=== PATIENT | female | born 1950 | race Caucasian/White ===

== ENCOUNTER → 2016-12-03 | Outpatient (CLI) | payer OTHER | LOC: BRMIMAGING 14:52 | DX: Z12.31 Encounter for screening mammogram for malignant neoplasm of breast (principal) | CPT/HCPCS: 72052-PO; G0202 ==

== ENCOUNTER → 2017-12-15 | Outpatient (CLI) | payer OTHER | LOC: BRMIMAGING 14:51 | PROVIDERS: ATTEND Family Medicine | DX: Z12.31 Encounter for screening mammogram for malignant neoplasm of breast (principal) ==

== ENCOUNTER 2018-09-29 10:02 | Inpatient (IN) | payer OTHER ==
--- NOTE | 2018-09-29 06:23 | PDHPUP ---
History & Physical Update H&P update statement: This history and physical update is based on an assessment of the patient which was completed after admission or registration (within 24 hours), but prior to the surgery/procedure. H&P update: H&P reviewed & patient examined, no change in patient's condition since H&P completed
[~2018-09-29 10:02] MED LIST: ROPIVACAINE 0.2% 80 MG, EPINEPHrine 0.2 MG, KETOROLAC TROMETHAMINE 30 MG in SYRINGE 0 ML IU ONE; TRANEXAMIC ACID 3,000 MG in NS (SYRINGE) 50 ML IRR ONE
[2018-09-29] MEDS ORDERED: TRANEXAMIC ACID 3,000 MG/50 ML BAG IRR ONE (10:05)
[2018-09-29] MEDS ORDERED: DEXAMETHASONE 4 MG/ML VIAL IVP ONE (10:17)
[2018-09-29] MEDS ORDERED: ceFAZolin 2 GM/DEXTROSE 100 ML IV ONE (10:17)
[2018-09-29] MEDS ORDERED: ACETAMINOPHEN 325 MG TAB PO ONE (10:17)
[2018-09-29] MEDS ORDERED: FAMOTIDINE 20 MG TAB PO ONE (10:17)
[2018-09-29] MEDS ORDERED: LR 1,000 ML IV ONE (10:17)
--- NOTE | 2018-09-29 11:50 | PDANEPAE ---
ANE History of Present Illness R total hip arthroplasty. ANE Past Medical History - Cardiovascular History Hx Hypertension: No Hx Arrhythmias: No Hx Chest Pain: No Hx Coronary Artery / Peripheral Vascular Disease: No Hx CHF / Valvular Disease: No Hx Palpitations: No - Pulmonary History Hx COPD: No Hx Asthma/Reactive Airway Disease: No Hx Recent Upper Respiratory Infection: No Hx Oxygen in Use at Home: No Hx Sleep Apnea: No Sleep Apnea Screening Result - Last Documented: Negative - Neurologic History Hx Cerebrovascular Accident: No Hx Seizures: No Hx Dementia: No - Endocrine History Hx Diabetes: No Hypothyroid: No Hyperthyroid: No Obesity: moderate - Renal History Hx Renal Disorders: No - Liver History Hx Hepatic Disorders: No - Neurological & Psychiatric Hx Hx Neurological and Psychiatric Disorders: No - Cancer History Hx Cancer: No - Congenital Disorder History Hx Congenital Disorders: No - GI History GERD: no Hx Gastrointestinal Disorders: No - Other Health History Other Health History: NONE - Chronic Pain History Chronic Pain: Yes (FIBROMYALGIA) - Surgical History Prior Surgeries: NONE IN LAST 5 YRS. Breast reduction, R shoulder arthroscopy, L bunionectomy, C/S under GA ANE Review of Systems Review of Systems: - Exercise capacity METS (RN): 4 METS ANE Patient History - Allergies Allergies/Adverse Reactions: Sulfa (Sulfonamide Antibiotics) Allergy (Verified 09/05/18 11:12) Vomiting/Headache - Home Medications Home Medications: Acetaminophen [Tylenol 325mg (*)] 325 mg PO Q6 PRN 09/05/18 [Last Taken 2 Weeks Ago ~09/15/18] Amitriptyline HCl [Elavil 50 mg (*)] 50 mg PO HS 09/05/18 [Last Taken 09/28/18] Calcium Carbonate [Oyster Shell Calcium 500 mg (*)] 500 mg PO DAILY 09/05/18 [ Last Taken 2 Weeks Ago ~09/15/18] Herbals/Supplements -Info Only 1 ea PO DAILY 09/05/18 [Last Taken 2 Weeks Ago ~ 09/15/18] Melatonin [Melatonin 3 MG (*)] 9 mg PO HS 09/05/18 [Last Taken 09/28/18] Multivitamins [Multivitamin (*)] 1 each PO DAILY 09/05/18 [Last Taken 2 Weeks Ago ~09/15/18] [place]-3 Fatty Acids [Fish Oil 1000 mg (*)] 1,000 mg PO DAILY 09/05/18 [Last Taken 2 Weeks Ago ~09/15/18] Vitamin B Complex [Vitamin B Complex (OTC)] 1 each PO DAILY 09/05/18 [Last Taken 2 Weeks Ago ~09/15/18] celeCOXIB [Celebrex (*)] 200 mg PO DAILY 09/05/18 [Last Taken 09/28/18] - NPO status NPO Since - Liquids (Date): 09/29/18 NPO Since - Liquids (Time): 08:00 NPO Since - Solids (Date): 09/28/18 NPO Since - Solids (Time): 20:30 - Anes Hx Anes Hx: post operative nausea - Smoking Hx Smoking Status: Never smoked Marijuana use: No - Alcohol Use Alcohol Use: Other (2 glasses of wine/day) - Family Anes Hx Family Anes Hx: none Family Hx Anesthesia Complications: NONE ANE Labs/Vital Signs - Vital Signs Blood Pressure: 145/78 Heart Rate: 79 Respiratory Rate: 14 O2 Sat (%): 95 Height: 162.56 cm Weight: 77.111 kg ANE Physical Exam - Airway Neck exam: FROM Mallampati Score: Class 2 Mouth exam: normal dental/mouth exam - Pulmonary Pulmonary: clear to auscultation - Cardiovascular Cardiovascular: regular rate and rhythym - ASA Status ASA Status: II ANE Anesthesia Plan Anesthesia Plan: spinal Regional Anesthesia: adductor canal FNB
[2018-09-29] MEDS ORDERED: MIDAZOLAM 2 MG/2 ML VIAL IVP ONE (11:54)
[2018-09-29] MEDS ORDERED: MIDAZOLAM 2 MG/2 ML VIAL ONE (11:55)
[2018-09-29] MEDS ORDERED: fentaNYL 100 MCG/2 ML INJ ONE (11:57)
[2018-09-29] MEDS ORDERED: PROPOFOL 200 MG/20 ML VIAL ONE ×3 (11:57→13:00)
[2018-09-29] MEDS ORDERED: BUPIVACAINE/DEXTROSE 7.5MG/ML 2 ML SPINAL AMP SP ONE (12:00)
[2018-09-29] MEDS ORDERED: ONDANSETRON 4 MG/2 ML VIAL ONE (12:22)
[2018-09-29] MEDS ORDERED: PROMETHAZINE HCL 25 MG SUPPR PR PRN (12:34)
[2018-09-29] MEDS ORDERED: diphenhydrAMINE 25 MG CAP PO PRN (12:34)
[2018-09-29] MEDS ORDERED: ONDANSETRON 4 MG/2 ML VIAL IVP PRN (12:34)
[2018-09-29] MEDS ORDERED: MAGNESIUM HYDROXIDE 30 ML UDCUP PO PRN (12:34)
[2018-09-29] MEDS ORDERED: DIPHENOXYLATE/ATROPINE LOMOTIL 1 TAB PO PRN (12:34)
[2018-09-29] MEDS ORDERED: PROMETHAZINE HCL 25 MG/ML INJ IVP PRN (12:34)
[2018-09-29] MEDS ORDERED: BISACODYL 10 MG SUPP PR PRN (12:34)
[2018-09-29] MEDS ORDERED: ONDANSETRON DISINTEGRATING 4 MG TAB PO PRN (12:34)
[2018-09-29] MEDS ORDERED: POLYETHYLENE GLYCOL 3350 17 GM PKT PO PRN (12:34)
[2018-09-29] MEDS ORDERED: LACTULOSE 20 GM/30 ML UDCUP PO PRN (12:34)
[2018-09-29] MEDS ORDERED: CYCLOBENZAPRINE 10 MG TAB PO PRN (12:34)
[2018-09-29] MEDS ORDERED: METOCLOPRAMIDE 10 MG/2 ML VIAL IVP PRN (12:34)
[2018-09-29] MEDS ORDERED: NALOXONE HCL 0.4 MG/ML INJ IVP PRN (12:59)
[2018-09-29] MEDS ORDERED: LR 1,000 ML IV SCH (13:00)
[2018-09-29] MEDS ORDERED: PHENYLEPHRINE HCL 100 MCG/ML SYR ONE (13:08)
--- NOTE | 2018-09-29 13:30 | POSTOPPROG ---
Post Op Note Date of Operation: 09/29/18 Surgeon: Marialuisa Galicia Hassock Maker: Colette Galicia PAc Anesthesiologist: Rubin Anesthesia: Spinal Pre-op Diagnosis: R hip DJD Post-op Diagnosis: same Indication: pain Procedure: R LETA Findings: DJD hip Inf/Abcess present in the surg proc area at time of surgery?: No EBL: 100-500
[2018-09-29] MEDS ORDERED: fentaNYL 100 MCG/2 ML INJ IVP PRN (13:32)
[2018-09-29] MEDS ORDERED: HYDROmorphONE/DILAUDID 2 MG/ML INJ IVP PRN (13:32)
--- NOTE | 2018-09-29 13:34 | PDMN ---
Medical Necessity Medical necessity: [facility] S560 hip arthroplasty A-2 days: OP: R LETA approved
[2018-09-29] MEDS ORDERED: ceFAZolin 2 GM/DEXTROSE 100 ML IV SCH (14:00)
[2018-09-29] MEDS: ACETAMINOPHEN 325 MG TAB PO SCH ×2 (18:06→23:53)
[2018-09-29] MEDS: ceFAZolin 2 GM/DEXTROSE 100 ML IV SCH (18:06)
[2018-09-29] MEDS: oxyCODONE IR 5 MG TAB PO PRN ×2 (18:54→19:16)
[2018-09-29] MEDS: ASPIRIN 81 MG CHEWABLE TAB PO SCH (20:41)
[2018-09-29] MEDS: FAMOTIDINE 20 MG TAB PO SCH (20:41)
[2018-09-29] MEDS: SENNOSIDES/DOCUSATE SODIUM TAB PO SCH (20:41)
[2018-09-29] MEDS: TEMAZEPAM 15 MG CAP PO PRN ×2 (20:45→23:54)
[2018-09-29] MEDS ORDERED: AMITRIPTYLINE HCL 50 MG TAB PO SCH (21:00)
[2018-09-30] MEDS: ceFAZolin 2 GM/DEXTROSE 100 ML IV SCH (01:48)
[2018-09-30] MEDS: oxyCODONE IR 5 MG TAB PO PRN ×4 (01:54→13:10)
[2018-09-30] MEDS: ACETAMINOPHEN 325 MG TAB PO SCH ×2 (05:45→13:11)
--- NOTE | 2018-09-30 06:12 | GOP ---
DATE OF OPERATION: 09/29/2018 SURGEON: Len Galicia MD LOW RAW SUGAR CUTTER: Colette Galicia, ANDREW. ANESTHESIA: Spinal. PREOPERATIVE DIAGNOSIS: Right hip osteoarthritis. POSTOPERATIVE DIAGNOSIS: Right hip osteoarthritis. PROCEDURE PERFORMED: Right total hip arthroplasty with x-ray. FINDINGS: ESTIMATED BLOOD LOSS: 200 cc. INDICATIONS: The patient has progressively worsening arthritis of the hip which has failed medical m anagement. The patient understands the treatment options including continued non-operative care and has selected surgical intervention. The patient has decided to undergo total hip arthroplasty via th e direct anterior approach, understanding the risks of the procedure including, but not limited to, n eurovascular injury, infection, persistent pain, component wear and loosening, deep venous thrombosis , pulmonary embolism, limb length inequality, hip instability (including dislocation), and intra-oper ative fractures. DESCRIPTION OF PROCEDURE: After proper identification of the patient including verification and kvng ing the surgical site, the patient was brought to the operating room and placed in the supine positio n. All bony prominences were well padded. Anesthesia was induced without complication and intraveno us prophylactic antibiotics were administered prior to skin incision. The operative leg was placed in the Trumpf Arch table extension and the well leg in a Yellofin leg ho lder. The patient was prepped and draped in the usual sterile fashion. The C-arm was draped for int ra-operative fluoroscopy to check acetabular position, femoral component position including leg lengt h and femoral offset. Attention was then drawn to surgical exposure of the hip. An incision was made with a #10 Bard Mariya r blade starting 3 cm lateral and 3 cm distal to the anterior superior iliac spine measuring 8-10 cm and coursing distally toward the greater trochanter. The skin and subcutaneous tissues were divided sharply down to the fascia rina. The fascia rina was incised in line with the skin incision exposing the underlying tensor fascia rina muscle. The muscle was bluntly elevated from the fascia and the f irst extracapsular Cobra retractor was placed laterally at the junction of the superior femoral neck and greater trochanter. The lateral femoral circumflex vessels were identified, cauterized, and divi ded with the Aquamantys bipolar cautery. The deep investing fascia of the TFL was divided to allow p wolfgang mobilization of the muscle preventing damage during the retraction. The reflected head of the rectus femoris muscle was elevated off the anterior hip capsule and a medial Cobra retractor was plac ed just proximal to the lesser trochanter. The anterior capsulotomy was made sharply from the superolateral acetabulum to the saddle junction of the superior femoral neck and greater trochanter, then coursing inferomedial towards the lesser troc hanter. The retractors were then placed in the intracapsular position for femoral neck osteotomy. C orresponding to pre-operative templating, the osteotomy was made with the oscillating saw carefully p rotecting the greater trochanter and soft tissues. The femoral head was removed from the acetabulum with a corkscrew and confirmed to be severely arthritic with exposed bone, deformity and osteophytes. Similar findings were confirmed in the acetabulum. The Arch table extension was then placed in 40 degrees external rotation. Attention was then drawn to the acetabular preparation. After placement of the anterior and posterio r Cobra retractors outside the labrum and intracapsular, the circumferential labrum was removed sharp ly. The foveal contents were then removed and hemostasis obtained with cautery. The first reamer selected was sized using the removed femoral head. Reaming began with medialization and then commenced in 2 mm increments at 45 degrees of abduction and 15 degrees of anteversion using fluoroscopic navigation. Reaming ceased 1 mm less than the definitive acetabular component and emmett esponded to the pre-operative templating. The final acetabular component was inserted using fluorosc opy to achieve proper orientation yielding excellent purchase and stability in the acetabulum. The f inal acetabular liner was then placed and its seating confirmed. Attention was then turned to the femur. The Arch table extension was placed in extension and adducti on, delivering the osteotomized femoral neck into the wound. A 2-pronged femoral elevator was placed at the calcar and another at the tip of the greater trochanter. The posterolateral capsule was rele ased with cautery allowing mobilization of the femur lateral and anterior for preparation. The exter nal rotators were visualized and preserved. A curette and rongeur were used to open the starting poi nt for broaching. Serial broaching started with the #0 broach and ended with the broach that exhibit ed excellent fit in the proximal femur. A change in pitch during mallet strikes was accompanied by t he inability to advance the broach any further. The trial reduction was performed and fluoroscopic n avigation was utilized to check limb length. Adjustments were made to equalize limb length according ly. After the final trials were accepted they were removed and the wound was copiously lavaged. The femo ral component was seated to the same depth as the final broach and the femoral head was impacted onto the clean trunnion. The hip was then reduced for the final time and once more fluoroscopy was used to check that limb length equality was achieved. The wound was irrigated and closed in layers, the fascia rina with 2-0 Quill, the subcutaneous tissue with 2-0 Quill, and the skin with Dermabond. Sterile dressings were applied. Final sharps and spon ge counts were accurate. The patient was then transferred to a hospital bed and [facility] in stable condition. IMPLANTS: Accolade II size 5, 127 acetabular component, Trident II 50 mm. Liner is a Trident X3 32 mm. Head is a Biolox Delta 32 mm -4. /[id number]/MODL
[2018-09-30 08:12] VITALS: BP 133/64
[2018-09-30] MEDS: ASPIRIN 81 MG CHEWABLE TAB PO SCH (09:08)
[2018-09-30] MEDS: SENNOSIDES/DOCUSATE SODIUM TAB PO SCH (09:08)
[2018-09-30] MEDS: FAMOTIDINE 20 MG TAB PO SCH (09:09)
--- NOTE | 2018-09-30 10:28 | SOAPPROG ---
SOAP Progress Note Assessment/Plan: Assessment: Patient is doing well POD 1 s/p R LETA Pain management: pain is well controlled on oral pain meds. VTE ppx: recommend 81 mg aspirin morning and evening for 4 weeks, cont KAREL and SCDs Anemia: level is expected initially postop. Asymptomatic. Continue to monitor D/c planning:patient has done much better than anticipated. Patient is stable, BP stable, pain well controlled and patient is eager for discharge to home. January d/c to home today pending release from PT Plan: 09/30/18 10:27 Subjective: patient is doing well today, denies SOB, chest pain and n/V Objective: Vital Signs Temp Pulse Resp BP Pulse Ox 36.5 C 79 16 133/64 H 95 09/30/18 08:00 09/30/18 08:00 09/30/18 08:00 09/30/18 08:00 09/30/18 08:00 Laboratory Results 09/30/18 04:18 09/29/18 09/30/18 10/01/18 05:59 05:59 05:59 Intake Total 1615 Output Total 200 200 Balance 1415 -200 RLE: incision dressing is clean and dry, NVI, +pf/df ICD10 Worksheet Patient Problems: Problems Problem Status Onset Primary localized osteoarthritis of right hip Acute
--- NOTE | 2018-09-30 10:36 | ASMTLACE ---
LACE Length of stay for Answers: Less than 1 day current admission Acuity / Level of Answers: Yes Care: Did the patient have an inpatient admission? Score: 3 Date Signed: 09/30/2018 10:36 AM Electronically Signed By:Janiya Reed
--- NOTE | 2018-09-30 12:05 | GDS ---
ADMIT DIAGNOSIS: Right hip osteoarthritis. DISCHARGE DIAGNOSIS: Right hip osteoarthritis. PROCEDURE: Right total hip arthroplasty. VTE PROPHYLAXIS: Recommend aspirin 81 mg twice daily for 4 weeks. HOSPITAL STAY: Patient was admitted for an elective joint arthroplasty. The patient tolerated the p rocedure well and has passed physical therapy. The patient was given appropriate antibiotic prophyla xis and venous thromboembolism prophylaxis. The patient's pain was well controlled on oral pain medi cation, patient was holding down food, and had urinated. Decision was made to discharge the patient. The patient was given post-operative prescriptions pre-operatively. PLAN: Appointment scheduled with Dr. Galicia's office October 19 at 11 a.m. /[id number]/MODL
--- NOTE | 2018-10-05 17:52 | GCON ---
PACU NOTE. The patient is status post hip replacement under spinal anesthesia. In the PACU, vascular and pulmona ry status are normal and stable. She is able to participate in the evaluation and she denies any clifton n or nausea and vomiting at the present time. No complications from spinal anesthesia at this time. /[id number]/MODL
== END 2018-09-30 13:30 | disposition home or self-care (01) | DRG 470 ==
LOC: F3N 10:02
PROVIDERS: ADMIT Orthopaedic Surgery; ATTEND Orthopaedic Surgery
PROC: 0SR904Z Replacement of Right Hip Joint with Ceramic on Polyethylene Synthetic Substitute, Open Approach (ICD-10-PCS; principal; 2018-09-29 12:00)
DX: M16.11 Unilateral primary osteoarthritis, right hip (principal)
CPT/HCPCS: 97116-GP; 97161-GP; 97530-GP; J0171; J0690; J1100; J1885; J2250; J2370; J2405; J2704; J2795; J3010

== ENCOUNTER → 2018-12-19 | Outpatient (CLI) | payer OTHER | LOC: BRMIMAGING 13:46 | PROVIDERS: ATTEND Family Medicine | DX: Z12.31 Encounter for screening mammogram for malignant neoplasm of breast (principal) ==